=== PATIENT | female | born 1980 | race Caucasian/White ===

== ENCOUNTER 2016-07-08 19:13 | Emergency (ER) | payer BC ==
[~2016-07-08] VITALS: Ht 160 cm; Wt 101.0 kg
[~2016-07-08 19:13] MED LIST: AZIT250T94 PO; CODE118S PO; DOCU-144 PO; FER325 PO; IBUP-1542 PO; NITR-58 PO; NO MEDS
[2016-07-08 19:43] VITALS: Ht 160 cm; Wt 101.0 kg
[2016-07-08] MEDS: IBUPROFEN 200 MG TAB PO ONE ×2 (23:06→23:08)
--- NOTE | 2016-07-08 23:16 | ERD ---
ER Documentation Chief Complaint Date/Time DATE: 07/08/16 TIME: 23:09 Chief Complaint left arm numbness x 1 week, left knee pain x 2 days, strength on L hand 5/5 HPI This 35-year-old female presents to emergency department reporting that her left arm has been falling asleep at night for the last week and a half. Currently it has been continuing to feel numbness and tingling throughout the day. 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 Patient denies lupus, rheumatoid arthritis. Reports current symptoms include heavy arms, hip pain, neck pain and stiffness, joint pain and swelling. Patient reports that her left leg has also felt "tingling". States that her left knee gave out today. Patient denies falling, hitting her head or any other injury. Patient denies change in vision or speech, denies headache. ROS All systems reviewed and are negative except as per history of present illness. Medications Home Meds Active Scripts Ibuprofen* (Motrin*) 600 Mg Tab, 600 MG PO Q6H Y for PAIN AND OR ELEVATED TEMP, #30 TAB Prov:CHARLOTTE LARA NP 01/14/16 Docusate Sodium* (Colace*) 100 Mg Capsule, 100 MG PO TID, #30 CAP Prov:CHARLOTTE LARA NP 01/14/16 Ferrous Sulfate* (Ferrous Sulfate*) 325 Mg Tabec, 325 MG PO BID, #60 TAB Prov:CHARLOTTE LARA NP 01/14/16 Nitrofurantoin Monohyd Macrocr* (Macrobid*) 100 Mg Capsr, 100 MG PO BID for 7 Days, #14 CAP 0 Refills Prov:MAYELA LA PA-C 08/23/15 Ibuprofen* (Motrin*) 600 Mg Tab, 600 MG PO Q6, #15 TAB Prov:HEVER ÁLVAREZ MD 02/05/15 Azithromycin* (Zithromax*) 250 Mg Tablet, 250 MG PO .ZPACK DIRECTED, #6 TAB TAKE 500 MG (2 TABS) THE FIRST DAY THEN 250 MG (1 TAB) DAYS 2-5 Prov:HEVER ÁLVAREZ MD 02/05/15 Promethazine w/Codeine (Phenergan w/Codeine Syrup) 5 Ml Syrup, 5 ML PO Q6 Y for COUGH for 7 Days, ML 6 OZ Prov:HEVER ÁLVAREZ MD 02/05/15 Reported Medications [No Meds] No Conflict Check 02/22/13 Allergies Allergies: Coded Allergies: No Known Allergy (Unverified , 02/22/13) PMhx/Soc History of Surgery: No Anesthesia Reaction: No Hx Neurological Disorder: No Hx Respiratory Disorders: No Hx Cardiac Disorders: Yes (HTN) Hx Psychiatric Problems: No Hx Miscellaneous Medical Probl: Yes (UTERINE POLYP) Hx Alcohol Use: No Hx Substance Use: No Hx Tobacco Use: No Physical Exam Vitals Vital Signs Date Time Temp Pulse Resp B/P Pulse Ox O2 Delivery O2 Flow Rate FiO2 07/08/16 19:43 98.3 118 20 134/67 98 Vitals stable, heart rate elevated at 118, blood pressure 134/67. Afebrile. Triage notes reviewed Physical Exam Const: Obese, no acute distress Head: Atraumatic Eyes: Normal Conjunctiva, PERRLA, EOMI ENT: Normal External Ears, Nose and Mouth. Mucous membranes moist Neck: Full range of motion. Paraspinal tenderness, trapezial and rhomboid tenderness bilaterally; left greater than right Resp: Cardio: Abd: Skin: Back: No midline or flank tenderness Ext: Neur: Awake and alert Psych: Normal Mood and Affect Results 24 hrs Current Medications Medications (Trade) Dose Ordered Sig/Renato Route PRN Reason Start Time Stop Time Status Last Admin Dose Admin Ibuprofen (Motrin) 400 mg ONCE ONCE PO 07/08/16 23:00 07/08/16 23:09 DC Diazepam (Valium) 5 mg ONCE ONCE PO 07/08/16 23:30 07/08/16 23:31 DC 07/08/16 23:18 Acetaminophen (Tylenol Tab) 650 mg ONCE ONCE PO 07/08/16 23:30 07/08/16 23:31 DC 07/08/16 23:18 Procedures/MDM PROCEDURE: XR Cervical Spine. CLINICAL INDICATION: Radiculopathy. TECHNIQUE: Three views of the cervical spine were performed. The images were reviewed on a PACS workstation. COMPARISON: None. FINDINGS: No fracture is identified. There is reversal of the normal cervical lordosis. Alignment is otherwise maintained. There is maintenance of height of the vertebral bodies. Bone mineralization is within normal limits. There is mild predominately anterior endplate hypertrophic changes greatest at C4-5.. Prevertebral soft tissues are unremarkable. IMPRESSION: 1. Reversal of the normal cervical lordosis, most commonly seen with muscle spasm. 2. No acute fracture or subluxation. 3. Predominately anterior endplate hypertrophic changes greatest at C4-5. .José Miguel Juarez MD, MD Date Time Electronically viewed and signed by .José Miguel Juarez MD, MD on 07/09/2016 00:15 This 35-year-old female presents to emergency department with neck stiffness, left arm tingling starting at night progressing to throughout the day over the last week and a half. History of fibromyalgia, patient reports that she is working with a new doctor who will be starting her on medication for fibromyalgia once her laboratory results come back. Patient denies any pre- existing injury. She has been evaluated and ruled out for lupus and rheumatoid arthritis. Differential diagnosis includes but is not limited to cerebral lesion, spinal cord lesion. Degenerative disc disease, radiculopathy, disc herniation. Fibromyalgia. Physical exam and history do not support cerebral lesion or spinal cord lesion, cervical x-ray obtained with findings of no fracture identified. There is reversal of the normal cervical lordosis. Alignment is otherwise maintained. There is maintenance of the height of the vertebral bodies. Bone mineralization is within normal limits. There is mild predominantly anterior endplate hypertrophic changes greatest at C4-C5. Prevertebral soft tissues are unremarkable. Impression documents reversal of the normal cervical lordosis most commonly seen with muscle spasm. No acute fracture or subluxation. Predominantly anterior endplate hypertrophic changes greatest at C4-C5. Patient given Tylenol and Valium for pain, reassessed after 60 minutes with improvement of symptoms. I feel patient is excellent candidate for outpatient management and treatment by primary care physician. Patient will be sent home with Motrin, Valium. Return to emergency department as needed worsening of symptoms I feel the patient is stable for discharge at this time. I have discussed results, examination findings, the treatment plan with the patient and family present prior to discharge. Indications for emergent reevaluation, side effects of medication were also discussed. All questions were answered. Patient verbalizes understanding and agrees with plan of care. Departure Diagnosis: Primary Impression: Cervical paraspinal muscle spasm Condition: Good Patient Instructions: Neck Sprain/Strain Additional Instructions: Thank you for for coming to [facility] for your care today. Please ask your nurse or provider if you have questions about your care today and do not leave until all your questions have been answered. Please use any medications given as directed and follow-up with your doctor (or the doctor you were referred to) in the next 2-3 days. If you do not have a primary care doctor you may follow up at the [facility] (listed below). You may also use motrin and tylenol as needed for fever and/or pain unless instructed otherwise by your provider or nurse. Indications for more urgent follow-up have been discussed, but you may return to the Emergency Department at ANY time for any worrisome or worsening symptoms. If you have abdominal pain, please know that no test or exam you received is perfect and you should follow up within 8 hours for continued pain. If you had any imaging studies today, such as an X-Ray or CT Scan, these studies will be reviewed later by a radiologist. You will be called if there are important findings that were not identified today, so make sure the contact information you provided at registration is correct. If you received any narcotic pain control medicine today, such as Vicodin, Morphine or Dilaudid, your coordination and judgment may be affected for a number of hours. Please do not drive or operate heavy machinery, and you may want someone to assist you at home. If you were given a prescription for narcotic medication, be aware that it is very addictive- use sparingly and only if necessary. DARRIN SANCHEZ Jul 08, 2016 23:16
[2016-07-08] MEDS ORDERED: ACETAMINOPHEN 325 MG TAB PO ONE (23:30)
[2016-07-08] MEDS ORDERED: DIAZEPAM 5 MG TAB PO ONE (23:30)
--- NOTE | 2016-07-09 00:16 | RADRPT ---
PROCEDURE: XR Cervical Spine. CLINICAL INDICATION: Radiculopathy. TECHNIQUE: Three views of the cervical spine were performed. The images were reviewed on a PACS N-Sided. COMPARISON: None. FINDINGS: No fracture is identified. There is reversal of the normal cervical lordosis. Alignment is otherwise maintained. There is maintenance of height of the vertebral bodies. Bone mineralization is within normal limits. There is mild predominately anterior endplate hypertrophic changes greatest at C4-5 .. Prevertebral soft tissues are unremarkable. IMPRESSION: 1. Reversal of the normal cervical lordosis, most commonly seen with muscle spasm. 2. No acute fracture or subluxation. 3. Predominately anterior endplate hypertrophic changes greatest at C4-5. RPTAT: HMVK .José Miguel Juarez MD, Date Time Electronically viewed and signed by .José Miguel Juarez MD, MD on 07/09/2016 00:15 .K/
[2016-07-09] MEDS ORDERED: ACET325T33 PO (00:40)
[2016-07-09] MEDS ORDERED: DIAZ5TAB4 PO (00:42)
[2016-07-09 01:18] VITALS: BP 133/72; PULSE 97; RESP 20; TEMP 98
== END 2016-07-09 01:19 | disposition home or self-care (01) ==
LOC: FTE 19:13
DX: M62.838 Other muscle spasm (principal); I10 Essential (primary) hypertension
CPT/HCPCS: 72040; Z7610

== ENCOUNTER 2016-07-13 12:45 | Day surgery (SDC) | payer BC ==
[~2016-07-13] VITALS: Ht 160 cm; Wt 98.2 kg
[~2016-07-13 12:45] MED LIST changes: +ACET325T33 PO; +DIAZ5TAB4 PO
[2016-07-13 14:17] VITALS: Ht 160 cm; Wt 98.2 kg
[2016-07-13 15:13] VITALS: BP 127/71; PULSE 95; RESP 18
[2016-07-13] MEDS ORDERED: LOSA100T7 PO (15:18)
[2016-07-13] MEDS ORDERED: PROPOFOL 60 ML ONE (16:28)
[2016-07-13 16:44] VITALS: BP 110/68; PULSE 95; RESP 20
--- NOTE | 2016-07-14 04:15 | GILP ---
DATE OF PROCEDURE: 07/13/2016 PROCEDURE: Esophagogastroduodenoscopy with biopsies. BRIEF HISTORY AND INDICATIONS: The patient is being evaluated for dyspepsia. PREMEDICATION: Monitored anesthesia care by anesthesiologist. SURGEON: Jens Lanza MD INSTRUMENT USED: Olympus panendoscope. TECHNIQUE: After informed consent, with the patient/relatives understanding the procedure, its indic ations, potential risks and complications, including but not limited to: allergic reaction, bleeding , perforation or infection, and after all pertinent questions were answered to the patients satisfac tion, the patient/relatives signed witnessed informed consent. Following this, premedication was administered slowly IV push under careful cardiovascular and respi ratory monitoring with pulse oximetry, automatic blood pressure and case monitor. Once the sedative effect was achieved the patient was place in the left lateral decubitus, the panen doscope was introduced and advanced under visual control. Careful examination of the upper gastrointestinal tract, both on insertion as well as withdrawal of the instrument disclosed the following findings: ESOPHAGUS: The distal esophagus shows erythema and edema of the mucosa of a moderate degree. STOMACH: Upon entrance to the stomach, air was insufflated, the gastric king distended normally. The mucosa of the fundus, body, and antrum of the stomach was carefully examined and shows erythema and edema of the mucosa. There are 2 linear ulcerations in the antrum of the stomach. Biopsies wer e obtained to rule out H. pylori infection. PYLORUS: The pylorus appears patent and within normal limits, with no evidence of gastric outlet ob struction. DUODENUM: The duodenal mucosa was carefully examined in the duodenal bulb as well as the second por tion of the duodenum and appears unremarkable with no evidence of duodenitis, ulcer or neoplasm. The instrument was then withdrawn, the patient tolerated the procedure well and was transfer out of the endoscopy suite awake, and in good condition to continue recovery under observation IMPRESSION: 1. Moderate distal esophagitis. 2. Gastritis with linear ulcerations in the antrum. Biopsies obtained. PLAN: The patient will be treated with PPIs. Further recommendation will depend on her clinical co urse as well as review of biopsies. Dictated By: JENS LANZA MS/OTIS Conf#: [id number] DID#: [id number]
--- NOTE | 2016-07-14 04:26 | GILP ---
DATE OF PROCEDURE: 07/13/2016 PROCEDURE: Colonoscopy with polyp ablation. BRIEF HISTORY AND INDICATIONS: The patient is being evaluated for hematochezia. PREMEDICATION: Monitored anesthesia care by anesthesiologist. SURGEON: Jens Lanza MD INSTRUMENT USED: Olympus colonoscope. PREPARATION: Adequate. TECHNIQUE: After informed consent, with the patient/relatives understanding the procedure, its indic ations potential risks and complications, including but not limited to: allergic reaction, bleeding, perforation, infection, missed lesions and after all pertinent questions were answered to the patie nt's satisfaction, the patient/relatives signed the witnessed informed consent. Following this, premedication was administered slowly IV push by under careful cardiovascular and re spiratory monitoring with pulse oximetry, automatic blood pressure and black topper. Once the sedativ e effect was achieved, the patient was placed in the left lateral decubitus position, digital rectal examination was performed. The colonoscope was then introduced and advanced under visual control th roughout all segments of the colon including: the rectum, sigmoid, descending colon, splenic flexure , transverse colon, hepatic flexure, ascending colon and finally reaching the cecum which was clearl y identified by transillumination, finger indentation and the ileocecal valve. Careful examination o f the mucosa of the lower gastrointestinal tract both on insertion as well as withdrawal of the inst rument disclosed the following findings: Rectal Examination: Shows moderate size external hemorrhoids and grade II prolapsing internal hemor rhoids. Colonic Mucosa: There is a 3 mm polyp in the rectum which was ablated with biopsy forceps. There are 2 small polyps measuring 3 and 4 mm in the sigmoid colon which were also ablated with biop sy forceps. The remainder of colonic mucosa unremarkable. Random biopsies were obtained to rule ou t macroscopic lymphocytic or collagenous colitis. Large internal hemorrhoids are present on withdra wal of the instrument through the anal canal. The patient tolerated the procedure well and was transferred out of the Endoscopy Suite awake and in good condition to continue recovery under observation. IMPRESSION: 1. A 3 mm polyp in the rectum, ablated. 2. Two small polyps in the sigmoid, ablated. 3. Rule out microscopic lymphocytic or collagenous colitis. Random biopsies obtained. 4. Large internal hemorrhoids with prolapse, grade II, moderate sized external hemorrhoids. PLAN: Pathology will be reviewed as soon as available. Colonoscopy in 5 years is recommended. Col orectal surgery evaluation is recommended. Dictated By: JENS LANZA MS/OTIS Conf#: [id number] DID#: [id number]
== END 2016-07-13 17:04 | disposition home or self-care (01) ==
LOC: GIL 12:45
PROVIDERS: ATTEND Internal Medicine Gastroenterology
DX: K29.50 Unspecified chronic gastritis without bleeding (principal); B96.81 Helicobacter pylori [H. pylori] as the cause of diseases classified elsewhere; K20.9 Esophagitis, unspecified; K25.9 Gastric ulcer, unspecified as acute or chronic, without hemorrhage or perforation; K64.1 Second degree hemorrhoids; K64.4 Residual hemorrhoidal skin tags; K62.1 Rectal polyp; K63.5 Polyp of colon; K92.1 Melena; I10 Essential (primary) hypertension; E66.9 Obesity, unspecified; Z68.38 Body mass index [BMI] 38.0-38.9, adult
CPT/HCPCS: 43239; 45380; 88305; 88312; Z7610

== ENCOUNTER 2016-10-19 11:57 | Day surgery (SDC) | payer BC ==
[~2016-10-19] VITALS: Ht 157.5 cm; Wt 99.8 kg
[~2016-10-19 11:57] MED LIST changes: -ACET325T33 PO; -AZIT250T94 PO; -CODE118S PO; -DIAZ5TAB4 PO; -IBUP-1542 PO; +LOSA100T7 PO; -NITR-58 PO
[2016-10-19 13:02] VITALS: Ht 157.5 cm; Wt 99.8 kg
[2016-10-19 13:16] VITALS: BP 124/74; PULSE 90; RESP 18
[2016-10-19] MEDS ORDERED: OMEPRAZOLE PO (13:18)
[2016-10-19] MEDS ORDERED: PROPOFOL 40 ML ONE (14:55)
--- NOTE | 2016-10-19 18:38 | GILP ---
DATE OF PROCEDURE: 10/19/2016 PROCEDURE PERFORMED: Esophagogastroduodenoscopy. INDICATION: The patient here for followup of previously identified gastric ulceration. MEDICATION MONITOR, ANESTHESIA CARE: By anesthesiologist. INSTRUMENT USED: Olympus endoscope. TECHNIQUE: After informed consent, with the patient/relatives understanding the procedure, its indications, potential risks and complications, including but not limited to: allergic reaction, bleeding, perforation or infection, and after all pertinent questions were answered to the patients satisfaction, the patient/relatives signed witnessed informed consent. Following this, premedication was administered slowly IV push under careful cardiovascular and respiratory monitoring with pulse oximetry, automatic blood pressure and phototypesetting equipment monitor. Once the sedative effect was achieved the patient was place in the left lateral decubitus, the panendoscope was introduced and advanced under visual control. Careful examination of the upper gastrointestinal tract, both on insertion as well as withdrawal of the instrument disclosed the following findings: ESOPHAGUS: Esophagus normal. The mucosa of the entire esophagus appears within normal limits. There is no evidence of esophagitis, varices, neoplasm or stricture. No Hiatal Hernia identified. STOMACH: Upon examination of the stomach there was some [____]. In the area of previously noted gastric ulceration are healed. There is however persistent erythema and edema and superficial erosion of the mucosa in the antrum. Biopsies were obtained to rule out H. pylori infection. Upon entrance to the stomach air was insufflated, the gastric king distended normally. The mucosa of the fundus, body and antrum of the stomach was carefully examined both head-on and on retroflexion, and shows no abnormalities. There is no evidence of gastritis, ulcers or neoplasm. PYLORUS: Pylorus normal. The pylorus appears patent and within normal limits, with no evidence of gastric outlet obstruction. DUODENUM: Duodenum normal. The duodenal mucosa was carefully examined in the duodenal bulb as well as the second portion of the duodenum and appears unremarkable with no evidence of duodenitis, ulcer or neoplasm. The instrument was then withdrawn, the patient tolerated the procedure well and was transfer out of the endoscopy suite awake, and in good condition to continue recovery under observation. IMPRESSION: 1. Healed gastric ulcerations. 2. Antrum gastritis, rule out Helicobacter pylori infection, biopsies obtained. RECOMMENDATIONS: The patient will continue on PPI. Further recommendations will depend on her clinical course and well as biopsies. Dictated By: Dru Lanza MD /henri/antonio /Document#: [id number]
== END 2016-10-19 18:09 | disposition home or self-care (01) ==
LOC: GIL 11:57
PROVIDERS: ATTEND Internal Medicine Gastroenterology
DX: K29.50 Unspecified chronic gastritis without bleeding (principal)
CPT/HCPCS: 43239; 88305; 88312; Z7610

== ENCOUNTER → 2018-06-17 | Outpatient (CLI) | payer BC ==
[~2018-06-17] MED LIST changes: -DOCU-144 PO; -FER325 PO; +IOHEXOL 300MG/ML 150 ML BTL ONE; +LOSA100T15 PO; -LOSA100T7 PO; -NO MEDS; +OMEPRAZOLE PO; +SOD CHLORIDE 0.9% 100 ML ONE
== END | disposition home or self-care (01) ==
LOC: C/S 09:54
PROVIDERS: ATTEND Internal Medicine Gastroenterology
DX: R10.12 Left upper quadrant pain (principal)
CPT/HCPCS: 74170; Q9967; Z7610